=== PATIENT | male | born 1955 | race Caucasian/White ===

== ENCOUNTER 2018-10-02 19:02 | Emergency (ER) | payer OTHER ==
[~2018-10-02] VITALS: Ht 177.8 cm; Wt 85.7 kg
--- NOTE | 2018-10-02 19:02 | NUR ---
[facility], CURRENTLY AWAITING BED
[2018-10-02 19:03] VITALS: BP 154/77
--- NOTE | 2018-10-02 19:14 | NUR ---
PT BIB [facility] TO BED 8
[2018-10-02] MEDS ORDERED: LIDOCAINE/EPI 2% 1:100000 20 ML VIAL INJ ONE (19:25)
[2018-10-02] MEDS ORDERED: BACITRACIN OINT 500 UNITS/GM PKT TP ONE (19:25)
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
[2018-10-02 21:08] VITALS: BP 148/80
== END 2018-10-02 21:08 | disposition home or self-care (01) ==
LOC: MED 19:02
DX: S01.81XA Laceration without foreign body of other part of head, initial encounter (principal); Y04.2XXA Assault by strike against or bumped into by another person, initial encounter; Y93.89 Activity, other specified; Y92.89 Other specified places as the place of occurrence of the external cause; Y99.0 Civilian activity done for income or pay
CPT/HCPCS: 12013; 99283; J2001